=== PATIENT | female | born 2000 | race Caucasian/White ===

== ENCOUNTER 2024-12-02 09:46 | Emergency (ER) | payer OTHER ==
[~2024-12-02] VITALS: Ht 175.3 cm; Wt 154.0 kg
[2024-12-02] MEDS ORDERED: SUBVENITE200 MG PO (10:20)
[2024-12-02] MEDS ORDERED: FLUOXETINE HCL60 MG PO (10:20)
[2024-12-02] MEDS ORDERED: ADDERALL XR 3030 MG PO (10:20)
[2024-12-02 11:15] VITALS: BP 131/90
== END 2024-12-02 11:15 | disposition home or self-care (01) ==
LOC: ED 09:46
DX: S93.402A Sprain of unspecified ligament of left ankle, initial encounter (principal); W01.0XXA Fall on same level from slipping, tripping and stumbling without subsequent striking against object, initial encounter; Z79.899 Other long term (current) drug therapy; Z91.018 Allergy to other foods; Z91.048 Other nonmedicinal substance allergy status
CPT/HCPCS: 73610; 99283

== ENCOUNTER 2024-12-10 09:08 | Emergency (ER) | payer OTHER ==
[~2024-12-10] VITALS: Ht 175.3 cm; Wt 156.0 kg
[~2024-12-10 09:08] MED LIST: ADDERALL XR 3030 MG PO; FLUOXETINE HCL60 MG PO; SUBVENITE200 MG PO
--- OUTSIDE RECORDS SUMMARY | 2024-12-10 09:14 | XMS ---
PreManage Notification: MELANIE ALLEN Security Hand Edge Bander Events No recent Security Events currently on file CRITERIA MET - [facility] - 2 Visits in 30 Days CARE PROVIDERS -, [facility] Dentist: Team Lead [facility] PHONE: [phone] -B[place]- Dentist: Team Lead [facility] PHONE: [phone] NOLAN MANCINI Current PHONE: [phone] ALLA GARCIA Current PHONE: Unknown SEBASTIAN MONTESINOS Current PHONE: [phone] [place] has no Care Guidelines for this patient. ESebastian. VISIT COUNT (12 MO.) [address] [facility] TOTAL 2 NOTE: Visits indicate total known visits. ED/UCC VISIT TRACKING (12 MO.) 12/10/2024 09:08 [facility] [place] TYPE: Emergency COMPLAINT: - VAGINAL BLEEDING 12/02/2024 09:48 [facility] [place] TYPE: Emergency COMPLAINT: - LT FOOT INJURY DIAGNOSES: - Allergy to other foods - Fall on same level from slipping, tripping and stumbling without subsequent striking against object, initial encounter - Other shelter (current) drug therapy - Other nonmedicinal substance allergy status - Pain in left ankle and joints of left foot - Sprain of unspecified ligament of left ankle, initial encounter INPATIENT VISIT TRACKING (12 MO.) No inpatient visits to display in this time frame [email or web address]
[2024-12-10] MEDS ORDERED: DEXTROAMP-AMPHE30 MG PO (09:24)
[2024-12-10] MEDS ORDERED: AMPHETAMINE SAL20 MG PO (09:24)
[2024-12-10] MEDS ORDERED: ACETAMINOPHEN 500 MG TAB PO ONE (09:45)
[2024-12-10 09:47] LABS: BASOPHILS 0.3 % (0-2); HEMATOCRIT 38.8 % (35.0-50.0); HEMOGLOBIN 13.4 g/dL (12.0-18.0); MCH 30.5 (27-36); MCHC 34.4 g/dl (30-36); MCV 88.7 fl (81-99); MONOCYTES 6.2 % (0-12); NEUTROPHILS 70.5 % (39-80); PLATELET COUNT 314 K/uL (140-440); RBC 4.37 M/ul (4.3-5.7); RDW 13.6 (10.5-15.0)
[2024-12-10 10:07] LABS: ALBUMIN 3.3 g/dL (3.4-5.0); ALBUMIN/GLOBULIN RATIO 0.92 (1.1-2.4); ALKALINE PHOSPHATASE 69 U/L (46-116); ALT (SGPT) 20 U/L (14-59); ANION GAP 10.5 (7-21); AST (SGOT) 13 U/L (15-37); BILIRUBIN, TOTAL 0.3 mg/dL (0.2-1.0); BUN/CREATININE RATIO 14.28 (6.0-28.6); CALCIUM 8.5 mg/dL (8.5-10.1); CARBON DIOXIDE 27 mmol/L (21-32); CHLORIDE 102 mmol/L (98-107); CREATININE, SERUM 0.84 mg/dL (0.55-1.02); GLOMERULAR FILTRATION RATE,EST 99 mL/min (>60); POTASSIUM 3.5 mmol/L (3.5-5.1); PROTEIN, TOTAL 6.9 g/dL (6.4-8.2); UREA NITROGEN 12 mg/dL (7-18)
[2024-12-10 10:15] LABS: ABO O; RH POSITIVE
[2024-12-10 10:52] LABS: BILIRUBIN, URINE NEGATIVE (negative); BLOOD/HGB, URINE TRACE-L (Negative); KETONE, URINE NEGATIVE (Negative); LEUK ESTERASE, URINE NEGATIVE (negative); NITRITE, URINE NEGATIVE (negative)
[2024-12-10 11:02] LABS: CASTS, URINE NONE SEEN \\lpf; CRYSTALS, URINE NONE SEEN (0-1+); EPITHELIAL CELLS, URINE SQUAMOUS 1+ /lpf (0-1+); RED BLOOD CELLS, URINE 0-1 /hpf (0-5); WHITE BLOOD CELLS, URINE 0-1 /HPF (0-5)
[2024-12-10 11:03] LABS: BACTERIA, URINE NONE SEEN /hpf (negative); COLLECTION TYPE, URINE CLEAN CATCH; REFLEX CULTURE, URINE No (No)
[2024-12-10 11:57] VITALS: BP 124/75
== END 2024-12-10 12:00 | disposition home or self-care (01) ==
LOC: ED 09:08
PROVIDERS: Emergency Medicine
DX: N93.9 Abnormal uterine and vaginal bleeding, unspecified (principal); Z91.018 Allergy to other foods; Z79.899 Other long term (current) drug therapy
CPT/HCPCS: 36415; 76801; 76815; 76817; 80053; 81001; 84702; 85025; 86900; 86901; 99284-25; A9270